=== PATIENT | female | born 1975 | race Caucasian/White ===

== ENCOUNTER → 2016-09-23 | Outpatient (CLI) | payer BC, OTHER ==
[~2016-09-23] MED LIST: AMOX875T PO; CALC500T72 PO; CLR10 PO; ESOM20CA PO; KETO10TA PO; MONT1TAB3 PO; OXYC-57 PO; OXYC1TAB3 PO; VITA400C3 PO; VITACAP26 PO; VTME100 PO
[2016-09-23 16:46] LABS: BASO % 0.3 %; BASO ABS # 0.03 K/uL (0-0.2); COMPLETE YES; EOS % 1.9 %; HEMATOCRIT 46.6 % (37-47); IG% 0.2 %; LYMPH % 23.7 %; LYMPH ABS # 2.84 K/uL (1.2-3.4); MEAN CELL VOLUME 95.1 fL (80-100); MEAN CORPUSCULAR HGB CONC 32.6 g/dl (32-36); MEAN PLATELET VOLUME 10.8 fL (7.4-10.4); MONO % 12.6 %; NEUT % 61.3 %; PLATELET COUNT 311 K/uL (130-400); WHITE BLOOD COUNT 11.97 K/uL (4.8-10.8)
[2016-09-23 17:12] LABS: BLOOD UREA NITROGEN 10 mg/dl (7-18); BUN/CREATININE RATIO 11.5 (10-20); CALCIUM 8.7 mg/dl (8.5-10.1); CARBON DIOXIDE 29 mmol/L (21-32); CHLORIDE 107 mmol/L (98-107); CREATININE 0.88 mg/dl (0.60-1.20); GLUCOSE 91 mg/dl (70-99); POTASSIUM 3.8 mmol/L (3.5-5.1); SODIUM 141 mmol/L (136-145)
== END | disposition home or self-care (01) ==
LOC: C.CPL 16:13
PROVIDERS: ATTEND Orthopaedic Surgery
DX: Z01.810 Encounter for preprocedural cardiovascular examination (principal); Z01.812 Encounter for preprocedural laboratory examination; M75.02 Adhesive capsulitis of left shoulder; R94.31 Abnormal electrocardiogram [ECG] [EKG]

== ENCOUNTER → 2016-12-24 | Day surgery (SDC) | payer BC, OTHER ==
[2016-12-17 16:34] VITALS: Ht 160 cm; Wt 86.4 kg
[~2016-12-24] VITALS: Ht 160 cm; Wt 86.4 kg
[~2016-12-24] MED LIST changes: -AMOX875T PO; +ATROPINE SULFATE 0.1 MG/ML 5ML SYR IV PRN; +BUPIVACAINE 0.5 % 5 MG/1 ML PF 10ML VIAL ONE; +EpHEDrine SULFATE INJ 50 MG/ML AMP IV PRN; +FENTANYL CITRATE INJ 50 MCG/1 ML 2 ML VIAL IV PRN; +FENTANYL CITRATE INJ 50 MCG/1 ML 2 ML VIAL ONE; +HYDROmorphone INJ 1 MG/ML SYR IV PRN; +LACTATED RINGER'S 1000ML 1,000 ML IV SCH; +LIDOCAINE HCL 2% 2 ML VIAL (20MG/ML) ONE; +METHYLPREDNISOLONE ACETATE 80 MG/ML VIAL ONE; +MIDAZOLAM HCL 1 MG/ML 2ML VIAL ONE; -MONT1TAB3 PO; +ONDANSETRON INJ 2 MG/ML 2 ML VIAL IV PRN; +ONDANSETRON INJ 2 MG/ML 2 ML VIAL ONE; -OXYC1TAB3 PO; +OXYCODONE/ACETAMINOPHEN 5-325 TAB PO PRN; +PROPOFOL IV EMULSION 10 MG/ML 20 ML VIAL IV ONE; +ROPIVACAINE 0.5% 5 MG/ML 30 ML VIAL ONE; +SODIUM CHLORIDE 0.9% 1000ML 1,000 ML IV SCH; -VITA400C3 PO; -VITACAP26 PO
--- NOTE | 2016-12-24 09:57 | History & Physical Bridge - [place] ---
H&P Re-Evaluation Bridge Note: I have examined the patient, reviewed the History & Physical and in the interval since the performance of the History & Physical I have noted the following changes of clinical significance: No changes noted
--- NOTE | 2016-12-24 13:13 | Discharge Instructions-SurgCtr ---
Discharge Instructions Date of Service Dec 24, 2016. Visit Reason for Visit: Left Shoulder Adhesive Capsulitis Discharge Discharge Diagnosis / Problem: SAME ABOVE Discharge Goals Goal(s): Decrease discomfort, Improve function Activity Recommendations Activity Limitations: as noted below Lifting Limitations: gradually increase as tolerated Exercise/Sports Limitations: gradually increase as tolerated Shower/Bathe: no limitations Anesthesia . Post Anesthesia Instructions: If you have had General Anesthesia or IV Sedation: * Do not drive today. * Resume driving when surgeon permits. * Do not make important decisions or sign legal documents today. * Call surgeon for: 1. Temperature elevations greater than 101 degrees F. 2. Uncontrollable pain. 3. Excessive bleeding. 4. Persistent nausea and vomiting. 5. Medication intolerance (nausea, vomiting or rash). * For nausea and vomiting use only clear liquids such as: tea, soda, bouillon until nausea subsides, then gradually increase diet as tolerated. * If you have any concerns or questions, call your surgeon's office. If physician is unavailable and it is an emergency, call 911 or go to the nearest emergency room. . Instructions / Follow-Up Instructions / Follow-Up MEDICATIONS: * Resume previous medications unless instructed otherwise by your surgeon. * Always take pain medication on a full stomach or with food to avoid upset stomach. * Do not drink alcohol or drive while taking narcotics. * Ibuprofen or Tylenol may be taken if narcotic not needed. SPECIAL CARE INSTRUCTIONS: __ None _X_ Keep extremity elevated and iced x 48 hours; apply ice 20-30 minutes 8-10 times/day. May remove at night. __ Sling __24 hrs/day __ Remove at night __ Shoulder Immobilizer __ 24 hrs/day __ Remove at night __ Dressing __ Maintain until seen in office, may shower with plastic over site __ Remove dressings in 24-48 hours and then may shower __ Cover incisions with band-aids after showering __ Do not remove steri-strips Call physician if chills or temperature rises above 102 degrees or pain unrelieved by prescribed pain medications at . . Diet Recommendations Home Diet: resume previous diet Procedures Procedures Performed: Left Shoulder Manipulation Under Anesthesia Pending Studies Studies pending at discharge: no Medical Emergencies . Who to Call and When: Medical Emergencies: If at any time you feel your situation is an emergency, please call 911 immediately. . Non-Emergent Contact Non-Emergency issues call your: Primary Care Provider . . "Provider Documentation" section prepared by Bartolo Bhardwaj. .
--- NOTE | 2016-12-24 13:36 | Anesthesia Progress Nt - [facility] ---
Anesthesia Post Op Note Date & Time Dec 24, 2016 at 13:36 Vital Signs Pain Intensity: 0 Vital Signs Past 12 Hours Date Time Temp Pulse Resp B/P (MAP) Pulse Ox O2 Delivery O2 Flow Rate FiO2 12/24/16 13:10 36.7 96 16 121/84 (96) 96 Room Air 12/24/16 12:53 0 12/24/16 12:51 132/78 12/24/16 12:48 93 12/24/16 12:48 92 10 100 12/24/16 12:46 125/83 12/24/16 12:43 101 21 100 12/24/16 12:43 101 12/24/16 12:41 129/91 12/24/16 12:38 93 12/24/16 12:38 94 0 99 12/24/16 12:36 127/92 12/24/16 12:33 90 12/24/16 12:33 89 0 100 12/24/16 12:31 131/90 12/24/16 12:28 90 6 132/82 100 12/24/16 12:28 93 12/24/16 10:58 37.4 77 16 135/92 (106) 98 Room Air Notes Mental Status: alert / awake / arousable, participated in evaluation Pt Amnestic to Procedure: Yes Nausea / Vomiting: adequately controlled Pain: adequately controlled Airway Patency, RR, SpO2: stable & adequate BP & HR: stable & adequate Hydration State: stable & adequate Anesthetic Complications: no major complications apparent
[2016-12-24 14:05] VITALS: BP 129/88; PULSE 98; TEMP 37.2; O2SAT 98
--- NOTE | 2016-12-24 14:32 | [facility] Post Operative Brief Note ---
Immediate Operative Summary Operative Date Dec 24, 2016. Pre-Operative Diagnosis Left Shoulder Adhesive Capsulitis Post-Operative Diagnosis Same Procedure(s) Performed Left Shoulder Manipulation Under Anesthesia Surgeon Dr. Quick Banking Consultant Surgeon(s) Chandra Bhardwaj PA-C Estimated Blood Loss None Findings as above Specimens None Complication(s) None Disposition Recovery Room / PACU
--- NOTE | 2016-12-24 16:09 | OPERATIVE REPORT ---
DATE OF OPERATION: 12/24/2016 PREOPERATIVE DIAGNOSIS: Adhesive capsulitis of the left shoulder. POSTOPERATIVE DIAGNOSIS: Same. PROCEDURE: Manipulation under anesthesia of the left shoulder. SURGEON: Dr. Bartolo Quick. ELECTRONICS SYSTEM MECHANIC: None. ANESTHESIA: General with a left interscalene nerve block. COMPLICATIONS: None. CONDITION: Stable to PACU. INDICATIONS FOR PROCEDURE: Arpita is a 41-year-old female who has been dealing with adhesive capsulitis of her left shoulder. I did an arthroscopic capsular release about 2 months ago. Unfortunately, she tightened back up and elected to proceed with the manipulation. DESCRIPTION OF PROCEDURE: On 12/24/2016, she arrived at [facility] for the above procedure. She was seen in the preoperative holding area and the operative extremity was identified and signed. She was given a left interscalene nerve block. She was taken back to the operating room, laid on the table in supine position and given a general anesthetic. Once she was properly sedated, a time-out was done and the patient and operative extremity was properly identified. On preoperative examination, she had about 40 degrees of abduction and 20 degrees of external rotation. A gentle manipulation was done under anesthesia and I was able to get full range of motion of her shoulder. She had full motion, abduction, external and internal rotation. The joint was then injected with 80 mg of Depo-Medrol and 5 mL of Marcaine. A Band-Aid was placed. She was then taken to the postanesthesia care unit in stable condition. She tolerated the procedure well. I attest to the content of the Intraoperative Record and any orders documented therein. Any exception s are noted below.
== END | disposition home or self-care (01) ==
LOC: X.SURG 10:10
PROVIDERS: ATTEND Orthopaedic Surgery
DX: M75.02 Adhesive capsulitis of left shoulder (principal)

== ENCOUNTER 2017-04-28 06:40 | Emergency (ER) | payer BC, OTHER ==
[~2017-04-28] VITALS: Ht 160 cm; Wt 91.0 kg
[~2017-04-28 06:40] MED LIST changes: -ATROPINE SULFATE 0.1 MG/ML 5ML SYR IV PRN; -BUPIVACAINE 0.5 % 5 MG/1 ML PF 10ML VIAL ONE; -EpHEDrine SULFATE INJ 50 MG/ML AMP IV PRN; -FENTANYL CITRATE INJ 50 MCG/1 ML 2 ML VIAL IV PRN; -FENTANYL CITRATE INJ 50 MCG/1 ML 2 ML VIAL ONE; -HYDROmorphone INJ 1 MG/ML SYR IV PRN; -LACTATED RINGER'S 1000ML 1,000 ML IV SCH; -LIDOCAINE HCL 2% 2 ML VIAL (20MG/ML) ONE; -METHYLPREDNISOLONE ACETATE 80 MG/ML VIAL ONE; -MIDAZOLAM HCL 1 MG/ML 2ML VIAL ONE; -ONDANSETRON INJ 2 MG/ML 2 ML VIAL IV PRN; -ONDANSETRON INJ 2 MG/ML 2 ML VIAL ONE; -OXYCODONE/ACETAMINOPHEN 5-325 TAB PO PRN; -PROPOFOL IV EMULSION 10 MG/ML 20 ML VIAL IV ONE; -ROPIVACAINE 0.5% 5 MG/ML 30 ML VIAL ONE; -SODIUM CHLORIDE 0.9% 1000ML 1,000 ML IV SCH
[2017-04-28 06:41] VITALS: TEMP 36.7; Ht 160 cm; Wt 91.0 kg
[2017-04-28] MEDS ORDERED: MoRPHine SULFATE 10 MG/ML CARP/VIAL IV STA (06:57)
[2017-04-28 07:23] LABS: BASO % 0.7 %; BASO ABS # 0.07 K/uL (0-0.2); COMPLETE YES; EOS % 1.7 %; HEMATOCRIT 45.5 % (37-47); IG% 0.2 %; LYMPH ABS # 3.03 K/uL (1.2-3.4); MEAN CELL VOLUME 95.2 fL (80-100); MEAN CORPUSCULAR HEMOGLOBIN 31.8 pg (25-34); MEAN CORPUSCULAR HGB CONC 33.4 g/dl (32-36); MEAN PLATELET VOLUME 11.2 fL (7.4-10.4); MONO % 12.7 %; NEUT % 55.7 %; PLATELET COUNT 297 K/uL (130-400); RED BLOOD COUNT 4.78 M/uL (4.2-5.4); WHITE BLOOD COUNT 10.45 K/uL (4.8-10.8)
[2017-04-28] MEDS ORDERED: MECLIZINE HCL 25 MG TAB PO STA (07:34)
--- NOTE | 2017-04-28 07:38 | DIAGNOSTIC IMAGING REPORT ---
HEAD WITHOUT CONTRAST (CT) CLINICAL HISTORY: 41 years-old Female presenting with dizzy, severe neck pain and weakness in the legs. TECHNIQUE: Multidetector CT imaging of the head was performed without the use of intravenous contrast. IV contrast: None. A dose lowering technique was used consistent with the principles of ALARA (as low as reasonably achievable). COMPARISON: None. CT DOSE (mGy.cm): The estimated cumulative dose is 1004.45 mGy.cm. FINDINGS: Pleat Patternmaker topogram: Unremarkable. Ventricles and sulci normal in size. Brain parenchyma normal in appearance with preserved denise-white differentiation. No mass effect or midline shift. No hemorrhage or acute territorial infarct. No extra-axial fluid collection. Paranasal sinuses and mastoid air cells clear. Calvarium intact. IMPRESSION: 1. No acute intracranial abnormality. Electronically signed by: Pop Shaw M.D. 04/28/2017 7:37 AM Dictated Date/Time: 04/28/2017 7:35 AM
[2017-04-28 07:42] LABS: CALCIUM 9.2 mg/dl (8.5-10.1); CREATININE 0.87 mg/dl (0.60-1.20); POTASSIUM 3.8 mmol/L (3.5-5.1)
--- NOTE | 2017-04-28 07:50 | EMERGENCY ROOM VISIT NOTE ---
History Report prepared by Nirali: Kirsten Beyer Under the Supervision of: Dr. Kyle Gomez D.O. First contact with patient: 06:47 Chief Complaint: NECK PAIN Stated Complaint: NECK PAIN,WEAKNESS IN LEGS,DIZZINESS History of Present Illness The patient is a 41 year old female who presents to the Emergency Room with complaints of persistent right sided neck pain that began this morning. She currently rates her discomfort as a 5/10 in severity. The patient states that her pain began this morning and notes worsened pain with movement of her head. She states that right after the pain began she noticed dizziness and weakness in her legs. The patient states that she feels off balance with ambulation. She states that her vision has also been blurry. The patient states that she has a history of three herniated discs in her neck and notes that she is scheduled to have surgery in two weeks. She denies any recent travel or fall. The patient denies headache, fevers, chest pain, shortness of breath, nausea, vomiting, diarrhea, pain with urination, and melena. Source of History: patient Onset: this morning Position: neck (right sided) Symptom Intensity: 5/10 Timing: other (persistent) Modifying Factors (Worsening): movement (of head) Associated Symptoms: + weakness (in legs) Note: Associated symptoms: dizziness, blurred vision, feeling off balance Review of Systems See HPI for pertinent positives & negatives. A total of 10 systems reviewed and were otherwise negative. Past Medical & Surgical Medical Problems: (1) Herniated disc, cervical Family History No pertinent family history stated. Social History Smoking Status: Never Smoker Marital Status: Housing Status: lives with significant other Occupation Status: employed Current/Historical Medications Scheduled Calcium Ascorbate (Vitamin C), 1 TAB PO QAM Esomeprazole Magnesium (Nexium), 20 MG PO QPM Loratadine (Claritin), 10 MG PO QPM Tocopheryl Acet,Dl-Alpha (Vitamin E), 1 CAP PO QAM Scheduled PRN Oxycodone Immediate Rel Tab (Roxicodone Ir), 5 MG PO Q6H PRN for Pain Allergies Coded Allergies: Ibuprofen (Verified Allergy, Unknown, UPSET STOMACH, 12/24/16) HIGH DOSES OF ADVIL ONLY, CAN TAKE SMALL DOSES Physical Exam Vital Signs Date Time Temp Pulse Resp B/P (MAP) Pulse Ox O2 Delivery O2 Flow Rate FiO2 04/28/17 10:00 87 18 98/67 98 04/28/17 09:00 86 18 128/87 96 Room Air 04/28/17 06:41 36.7 95 18 139/90 99 Room Air Physical Exam GENERAL: Sitting up in bed, in moderate distress, not moving neck, alert, well appearing, well nourished, non-toxic EYE EXAM: normal conjunctiva. PERRL and EOM's intact. OROPHARYNX: no exudate, no erythema, lips, buccal mucosa, and tongue normal and mucous membranes are moist NECK: Acute reproducible tenderness, just right of the OA joint tracking down the right paraspinal cervical region, does not enter the trapezius, supple, no nuchal rigidity, no adenopathy. LUNGS: Clear to auscultation. Normal chest wall mechanics HEART: no murmurs, S1 normal and S2 normal ABDOMEN: abdomen soft, non-tender, normo-active bowel sounds, no masses, no rebound or guarding. BACK: Back is symmetrical on inspection and there is no deformity, no midline tenderness, no CVA tenderness. SKIN: no rashes and no bruising UPPER EXTREMITIES: Flexion and extension in shoulder, elbow wrist, grasp and abduction of digits are 4/4 bilaterally, gross sensations intact. LOWER EXTREMITIES: Extension and flexion of hip, knee, ankle, and EHL 5/5 bilaterally, gross sensations are intact, patellar and Achilles reflexes are 2/ 4 bilaterally. No pitting edema. NEURO EXAM: Normal sensorium, cranial nerves II-XII intact, normal speech, no weakness of arms, no weakness of legs. No drift. Finger to nose intact. Gross sensation intact. Able to walk on heels and toes Medical Decision & Procedures ER Provider Diagnostic Interpretation: CT:Per my review, radiologist interpretation. HEAD WITHOUT CONTRAST (CT) CLINICAL HISTORY: 41 years-old Female presenting with dizzy, severe neck pain and weakness in the legs. TECHNIQUE: Multidetector CT imaging of the head was performed without the use of intravenous contrast. IV contrast: None. A dose lowering technique was used consistent with the principles of ALARA (as low as reasonably achievable). COMPARISON: None. CT DOSE (mGy.cm): The estimated cumulative dose is 1004.45 mGy.cm. FINDINGS: Aircraft Engine Specialist topogram: Unremarkable. Ventricles and sulci normal in size. Brain parenchyma normal in appearance with preserved denise-white differentiation. No mass effect or midline shift. No hemorrhage or acute territorial infarct. No extra-axial fluid collection. Paranasal sinuses and mastoid air cells clear. Calvarium intact. IMPRESSION: 1. No acute intracranial abnormality. Electronically signed by: Pop Shaw M.D. 04/28/2017 7:37 AM Dictated Date/Time: 04/28/2017 7:[address] DOSE: HISTORY: neck pain TECHNIQUE: Multiaxial CT images of the cervical spine were performed and reformatted in the sagittal and coronal plane without the use of contrast. A dose lowering technique was utilized adhering to the principles of ALARA. COMPARISON: None. FINDINGS: No fractures. No subluxation. Prevertebral soft tissues and the C1-C2 interval are intact. No pneumothorax. Moderate to space narrowing at C5-C6 with endplate osteophytes. Are she calcified left paracentral disc protrusion resulting in moderate central canal narrowing at this level. Therefore, this is considered to be chronic. 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 IMPRESSION: No fractures within the cervical spine. Electronically signed by: Dennis Foster M.D. 04/28/2017 8:59 AM Dictated Date/Time: 04/28/2017 8:10 AM Laboratory Results 04/28/17 07:05 Red Blood Count 4.78, Mean Corpuscular Volume 95.2, Mean Corpuscular Hemoglobin 31.8, Mean Corpuscular Hemoglobin Concent 33.4, Mean Platelet Volume 11.2, Neutrophils (%) (Auto) 55.7, Lymphocytes (%) (Auto) 29.0, Monocytes (%) (Auto) 12.7, Eosinophils (%) (Auto) 1.7, Basophils (%) (Auto) 0.7, Neutrophils # (Auto ) 5.82, Lymphocytes # (Auto) 3.03, Monocytes # (Auto) 1.33, Eosinophils # (Auto ) 0.18, Basophils # (Auto) 0.07 04/28/17 07:05 Test 04/28/17 07:05 White Blood Count 10.45 K/uL (4.8-10.8) Red Blood Count 4.78 M/uL (4.2-5.4) Hemoglobin 15.2 g/dL (12.0-16.0) Hematocrit 45.5 % (37-47) Mean Corpuscular Volume 95.2 fL (80-100) Mean Corpuscular Hemoglobin 31.8 pg (25-34) Mean Corpuscular Hemoglobin Concent 33.4 g/dl (32-36) Platelet Count 297 K/uL (130-400) Mean Platelet Volume 11.2 fL (7.4-10.4) Neutrophils (%) (Auto) 55.7 % Lymphocytes (%) (Auto) 29.0 % Monocytes (%) (Auto) 12.7 % Eosinophils (%) (Auto) 1.7 % Basophils (%) (Auto) 0.7 % Neutrophils # (Auto) 5.82 K/uL (1.4-6.5) Lymphocytes # (Auto) 3.03 K/uL (1.2-3.4) Monocytes # (Auto) 1.33 K/uL (0.11-0.59) Eosinophils # (Auto) 0.18 K/uL (0-0.5) Basophils # (Auto) 0.07 K/uL (0-0.2) RDW Standard Deviation 45.9 fL (36.4-46.3) RDW Coefficient of Variation 13.3 % (11.5-14.5) Immature Granulocyte % (Auto) 0.2 % Immature Granulocyte # (Auto) 0.02 K/uL (0.00-0.02) Anion Gap 6.0 mmol/L (3-11) Est Creatinine Clear Calc Drug Dose 89.3 ml/min Estimated GFR () 94.6 Estimated GFR (Non- 81.6 BUN/Creatinine Ratio 15.0 (10-20) Calcium Level 9.2 mg/dl (8.5-10.1) Laboratory results per my review. Medications Administered Medications (Trade) Dose Ordered Sig/Bogdan Route Start Time Stop Time Status Last Admin Dose Admin Morphine Sulfate (MoRPHine SULFATE INJ) 6 mg NOW STAT IV 04/28/17 06:57 04/28/17 06:59 DC 04/28/17 07:21 6 MG Meclizine HCl (Antivert Tab) 25 mg NOW STAT PO 04/28/17 07:34 04/28/17 07:35 DC 04/28/17 07:41 25 MG ED Course ED COURSE: Vital signs were reviewed and showed hypertensive The patients medical record was reviewed The above diagnostic studies were performed and reviewed. ED treatments and interventions as stated above. 0650: The patient was evaluated in room B5. A complete history and physical examination was performed. 0657: Ordered Morphine Sulfate 6 mg IV. 0732: Ordered Meclizine HCl 25 mg PO. 0753: I reevaluated the patient and her pain is resolving and her dizziness and better. 0940: Upon reevaluation, the patient is resting comfortably.I discussed my findings with the patient and she understands and agrees with the treatment plan. Based on the patients age, coexisting illnesses, exam and lab findings the decision to treat as an outpatient was made. The patient remained stable while under my care. The patient appeared well at the time of discharge. Medical Decision Differential diagnosis includes etiologies such as benign positional vertigo, dehydration, hypovolemia, anemia, tumor, infection, hypoglycemia, electrolyte abnormalities, cardiac sources, intracerebral event, toxicologic, neurologic, to lumbar radiculopathy, muscle strain, facture, cauda equina, mass, and disc herniation. Patient is a 41-year-old female who presents to ER for right sided neck pain. Pain is located at the base of her right LA tracking down her right cervical paraspinal musculature. Palpable on exam. Worse with movement IE twisting turning and bending of the neck. Completely neurologically intact. No headache. Complains of mild dizziness. Neuro exam is completely intact. Presentation is not consistent with CVA. No lateral neck pain to suggest vascular involvement of carotids and pain is consistent with musculoskeletal pain. Do not believe it's a vertebral issue. Patient ambulate without difficulty and did this on heels and toes. Patient does have 3 herniated disc. Prescription for surgery 2-3 weeks. Patient was given IV morphine. CBC and BMP were unremarkable. No fevers. No signs meningitis or encephalitis. CBC and BMP were unremarkable. CT of the cervical spine and head were negative. With her being completely neurologically intact she was discharged as the pain is paraspinal and muscular. It is completely reproducible. Vision was at her baseline. Pain was significant improved. Discharged with [facility]. PDMP reviewed. She was discharged follow-up with orthopedic spine. Discussed with Pt concerning signs and symptoms to watch out for. Pt was instructed to follow up with their PCP and discussed with the patient their option to return to the ED at anytime for persistent or worsening symptoms. The appropriate anticipatory guidance and out-patient management, including indications for return to the emergency department, were explained at length to the patient and understood. [place] Drug Monitoring Program Search Results: patient reviewed within database, no issues identified Medication Reconcilliation Current Medication List: was personally reviewed by me Blood Pressure Screening Patient's blood pressure: Elevated blood pressure Blood pressure disposition: Elevated BP felt to be situational, Did not require urgent referral Impression Primary Impression: Neck pain Scribe Attestation The scribe's documentation has been prepared under my direction and personally reviewed by me in its entirety. I confirm that the note above accurately reflects all work, treatment, procedures, and medical decision making performed by me. Departure Information Dispostion Home / Self-Care Prescriptions Oxycodone Immediate Rel Tab (ROXICODONE IR) 5 Mg Tab 5 MG PO Q6H Y for Pain, #10 TAB Prov: Kyle Gomez, DO 04/28/17 Referrals Derick Lester D.O. (PCP) Forms HOME CARE DOCUMENTATION FORM, IMPORTANT VISIT INFORMATION, WORK / SCHOOL INSTRUCTIONS Patient Instructions ED Neck Back Pain General, My [facility] Additional Instructions Please follow up with your primary care doctor with in the next 24 hours. Any worsening of your symptoms, please return to the ED immediately. This includes any fevers greater than 100.4, worsening pain, chest pain, shortness breath, persistent nausea, vomiting, unable to eat or drink, weakness in your arms or legs, or any other concerning signs or symptoms from your standpoint. You were given medications during this visit that will inhibit your ability to drive, operate machinery and work. Please do NOT drive, operate machinery or work for the next 12hrs. You were also given a prescription for a narcotic. While taking this medication you should also not drive, operate machinery and or work. Please follow up with orthopedic spine within the next week.
--- NOTE | 2017-04-28 09:00 | DIAGNOSTIC IMAGING REPORT ---
CERVICAL SPINE CT CT DOSE: HISTORY: neck pain TECHNIQUE: Multiaxial CT images of the cervical spine were performed and reformatted in the sagittal and coronal plane without the use of contrast. A dose lowering technique was utilized adhering to the principles of ALARA. COMPARISON: None. FINDINGS: No fractures. No subluxation. Prevertebral soft tissues and the C1-C2 interval are intact. No pneumothorax. Moderate to space narrowing at C5-C6 with endplate osteophytes. Are she calcified left paracentral disc protrusion resulting in moderate central canal narrowing at this level. Therefore, this is considered to be chronic. 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 IMPRESSION: No fractures within the cervical spine. Electronically signed by: Dennis Foster M.D. 04/28/2017 8:59 AM Dictated Date/Time: 04/28/2017 8:10 AM
[2017-04-28] MEDS ORDERED: OXYC1TAB3 PO (09:51)
[2017-04-28 10:00] VITALS: BP 98/67; PULSE 87; O2SAT 98
[2017-04-29] MEDS ORDERED: VITA400C3 PO (16:19)
[2017-04-29] MEDS ORDERED: MONT1TAB3 PO (16:19)
[2017-04-29] MEDS ORDERED: AMOX875T PO (16:19)
== END 2017-04-28 09:58 | disposition home or self-care (01) ==
LOC: C.EDB 06:41
DX: M54.2 Cervicalgia (principal); R42 Dizziness and giddiness

== ENCOUNTER 2017-05-13 05:34 | Observation (INO) | payer BC, OTHER ==
[2017-04-29 16:22] VITALS: BMI 35.0
--- NOTE | 2017-05-12 17:29 | HISTORY & PHYSICAL EXAMINATION ---
DATE OF ADMISSION: 05/13/2017 PREOPERATIVE HISTORY AND PHYSICAL CHIEF COMPLAINT: Neck and arm pain, trapezius pain, weakness, numbness and tingling. 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 She is miserable. She has exhausted conservative care. PAST MEDICAL HISTORY: Positive for acid reflux, neck and low back difficulties of sciatica; no kidney, liver disease; no carcinoma; does get some nausea and vomiting with anesthesia. No cardiac issues, diabetes or blood disorders. PAST SURGICAL HISTORY: Hysterectomy; elbow, knee surgery; 2 shoulder surgeries. ALLERGIES: Negative. MEDICATIONS: Listed on her inquiry. SOCIAL HISTORY: Nonsmoker, minimal alcohol, no drugs usage. REVIEW OF SYSTEMS: Denied any blurred vision, double vision, tinnitus, vertigo; occasional cervical spine migraine headaches. Denies any chest pain, palpitations. Denies shortness of breath. No nausea, vomiting. No urgency, frequency. OBJECTIVE: GENERAL: She is alert, oriented, pleasant young lady. She is 5 feet 3 inches, 198; she is 41. VITAL SIGNS: Blood pressure 140/80, pulse 80, respirations 16. MENTATION: Normal. No depression. HEENT: Normal. Specifically, pupils are reactive to accommodation. NECK: No adenopathy. CHEST: Normal S1, S2, no S3. LUNGS: Clear to auscultation. No rales, rhonchi or wheezing. ABDOMEN: Soft, nontender. MUSCULOSKELETAL: She has pain with flexion, extension of the cervical spine. Pain with side bending, positive Spurling maneuver, numbness and tingling to the extremities, weak communications department chairperson strength. IMAGES: Demonstrates kyphosis, osteophyte formation and stenosis of the spine. IMPRESSION: Two level cervical spine disease. DISPOSITION: Includes a 2-level ACDF, C4 through C6 cervical spine with iliac crest bone graft.
[~2017-05-13] VITALS: Ht 160 cm; Wt 90.9 kg
[2017-05-13] VITALS (14 sets, daily range): BP systolic 115–133; BP diastolic 77–91; PULSE 83–102; TEMP 36.5–37.2; O2SAT 92–100; Ht 160 cm; Wt 90.9 kg
[~2017-05-13 05:34] MED LIST changes: +AMOX875T PO; -KETO10TA PO; +MONT1TAB3 PO; -OXYC-57 PO; +VITA400C3 PO; -VTME100 PO
[2017-05-13] MEDS ORDERED: CEFAZOLIN 2000MG IV PUSH 10 ML IV SCH ×2 (06:00→16:00)
[2017-05-13] MEDS ORDERED: LACTATED RINGER'S 1000ML 1,000 ML IV SCH (06:00)
[2017-05-13] MEDS ORDERED: NSS 1000ML IV SCH (06:00)
[2017-05-13] MEDS ORDERED: PROPOFOL IV EMULSION 10 MG/ML 20 ML VIAL IV ONE (06:42)
[2017-05-13] MEDS ORDERED: DEXAMETHASONE SOD INJ 4 MG/ML VIAL ONE ×2 (06:42→08:14)
[2017-05-13] MEDS ORDERED: GLYCOPYRROLATE INJ 0.2 MG/ML VIAL ONE (06:42)
[2017-05-13] MEDS ORDERED: LIDOCAINE HCL 2% 2 ML VIAL (20MG/ML) ONE (06:42)
[2017-05-13] MEDS ORDERED: ROCURONIUM BROMIDE 10 MG/ML 5 ML VIAL IV ONE ×2 (06:42→08:36)
[2017-05-13] MEDS ORDERED: MIDAZOLAM HCL 1 MG/ML 2ML VIAL ONE (06:42)
[2017-05-13] MEDS ORDERED: NEOSTIGMINE METHYLSULFATE 1 MG/ML 10ML VIAL ONE (06:42)
[2017-05-13] MEDS ORDERED: ONDANSETRON INJ 2 MG/ML 2 ML VIAL ONE ×2 (06:42→09:17)
[2017-05-13] MEDS ORDERED: FENTANYL CITRATE INJ 50 MCG/1 ML 2 ML VIAL ONE ×2 (06:42→08:08)
[2017-05-13] MEDS ORDERED: ACETAMINOPHEN 1000 MG/100 ML IV IV ONE (06:46)
[2017-05-13] MEDS ORDERED: SCOPOLAMINE 1.5 MG TDSY TD ONE (07:05)
[2017-05-13] MEDS ORDERED: GELATIN SPONGE SZ 100 ONE ×2 (07:10→09:54)
[2017-05-13] MEDS ORDERED: THROMBIN FOR SOLN 20000 UNIT KIT ONE (07:10)
[2017-05-13] MEDS ORDERED: BUPIVACAINE/EPINEPHRINE 0.5% MPF 1:200,000 30 ML VIAL ONE (07:11)
[2017-05-13] MEDS ORDERED: BACITRACIN 50000 UNIT VIAL ONE (07:11)
[2017-05-13] MEDS ORDERED: ONDANSETRON INJ 2 MG/ML 2 ML VIAL IV PRN (08:00)
[2017-05-13] MEDS ORDERED: EpHEDrine SULFATE INJ 50 MG/ML AMP IV PRN (08:00)
[2017-05-13] MEDS ORDERED: FENTANYL CITRATE INJ 50 MCG/1 ML 2 ML VIAL IV PRN (08:00)
[2017-05-13] MEDS ORDERED: ATROPINE SULFATE 0.1 MG/ML 5ML SYR IV PRN (08:00)
[2017-05-13] MEDS ORDERED: HYDROmorphone INJ 2 MG/ML SYR/VIAL ONE (08:41)
--- NOTE | 2017-05-13 10:54 | [facility] Post Operative Brief Note ---
Immediate Operative Summary Operative Date May 13, 2017. Pre-Operative Diagnosis Two level cervical spine disease Post-Operative Diagnosis Two level cervical spine disease Procedure(s) Performed C4-C5, C5-C6 Anterior Cervical Discectomy and Fusion with Iliac Crest Bone Graft Surgeon Dr. Das Fall Internship Surgeon(s) Bartolo Bhardwaj PA-C Estimated Blood Loss 100ml Findings cord compression Specimens none per surgeon Complication(s) None Disposition Recovery Room / PACU
[2017-05-13] MEDS ORDERED: RACEPINEPHRINE 2.25% NEBU SOLN 0.5 ML VIAL INH PRN (11:00)
[2017-05-13] MEDS ORDERED: ACETAMINOPHEN IV 100 ML IV PRN (11:00)
[2017-05-13] MEDS ORDERED: NALOXONE HCL 0.4 MG/1 ML VIAL/CARP IV PRN (11:00)
[2017-05-13] MEDS ORDERED: DEXAMETHASONE INJ 8 MG in SYRINGE 0 ML IV PRN (11:00)
[2017-05-13] MEDS ORDERED: OXYCODONE/ACETAMINOPHEN 5-325 TAB PO PRN (11:00)
[2017-05-13] MEDS ORDERED: MAGNESIUM HYDROXIDE SUSP 30 ML UDC PO PRN (11:00)
--- NOTE | 2017-05-13 11:14 | OPERATIVE REPORT ---
DATE OF OPERATION: 05/13/2017 PREOPERATIVE DIAGNOSIS: Spinal cord compression C5-C6 and C4-C5 cervical spine. POSTOPERATIVE DIAGNOSIS: Same. PROCEDURE: Anterior cervical discectomy C4-C5 and C5-C6, decompression of spinal cord, partial corpectomy, anterior plating and anterior interbody fusion at C4-C5 and C5-C6, lastly was an anterior plate. Finally there was also a structural autograft taken from the left iliac crest separate fascial muscle approach. SURGEON: Dr. Das. FLY RAISER LOCKSTITCH: Bartolo Bhardwaj PA-C. OPERATION AND FINDINGS: DESCRIPTION OF PROCEDURE: The patient was taken to the operating room, a general intubated anesthetic provided to the patient, kept supine on the [facility] table. She was scrubbed, prepped and draped sterile. We made a transverse incision over roughly the 5th vertebrae, came down on the cervical spine, anterior aspect at the C4-5 interval. We were able to decompress the spinal cord. I took out the entire disc at this level. I took out osteophytes. I was up and behind the vertebrae out to the neural foramen. We went down to the C5-C6 region. This was more difficult level. Significant osteophyte formation. I believe we were able to get all extra bone removed, good foraminotomies performed. I could look down and see the spinal cord. There were no apparent issues or compression. We irrigated. I then went to the left iliac crest, made a skin incision, fascial incision, harvested 2 structural autografts at this level. The C5-C6 level was approximately 8 mm in height, the C4-C5 was approximately 7 mm in height. These were placed into the vacated discectomy sites. Anterior plate placed over top, locked and secured. Images looked appropriate. We irrigated and closed, locked down the plate, closed over a Gilberto drain with 4-0 Monocryl suture. Sterile dressing applied. Left iliac crest closed first with 1 Vicryl, 2-0 and 3-0 nylon. Sterile dressings were placed here as well. The patient extubated to PACU stable. No apparent complications. BLOOD LOSS: Less than 100 mL. COUNTS: Sponge and needle count correct at the close. IMPLANTS USED: Were by the [employer]. I attest to the content of the Intraoperative Record and any orders documented therein. Any exception s are noted below.
[2017-05-13] MEDS ORDERED: NURSING VERBAL MED ORDER ONE (11:45)
[2017-05-13] MEDS ORDERED: PROMETHAZINE HCL INJ 6.25 MG in SODIUM CHLORIDE 0.9% 50ML 50 ML IV ONE (12:00)
--- NOTE | 2017-05-13 12:19 | Anesthesiology Progress Note ---
Anesthesia Post Op Note Date & Time May 13, 2017 at 12:19 Vital Signs Pain Intensity: 1 Vital Signs Past 12 Hours Date Time Temp Pulse Resp B/P (MAP) Pulse Ox O2 Delivery O2 Flow Rate FiO2 05/13/17 12:01 78 17 123/86 100 05/13/17 12:01 78 17 05/13/17 11:56 81 19 126/85 99 05/13/17 11:56 83 19 05/13/17 11:51 84 16 05/13/17 11:51 83 16 134/93 99 05/13/17 11:46 99 26 134/84 99 05/13/17 11:46 101 26 05/13/17 11:41 76 19 05/13/17 11:41 74 19 125/84 100 05/13/17 11:36 80 19 05/13/17 11:36 81 19 122/81 100 05/13/17 11:31 81 14 05/13/17 11:31 81 14 126/76 100 05/13/17 11:26 79 19 121/80 99 05/13/17 11:26 79 19 05/13/17 11:21 79 25 05/13/17 11:21 78 25 127/72 100 05/13/17 11:16 78 18 05/13/17 11:16 78 18 118/74 100 05/13/17 11:11 79 17 128/79 99 05/13/17 11:11 79 17 05/13/17 11:06 95 20 131/92 97 05/13/17 11:06 94 20 05/13/17 11:01 36 94 16 131/92 97 Oxymask 7 05/13/17 06:02 36.6 95 20 130/91 97 Room Air Notes Mental Status: alert / awake / arousable, participated in evaluation Pt Amnestic to Procedure: Yes Nausea / Vomiting: adequately controlled Pain: adequately controlled Airway Patency, RR, SpO2: stable & adequate BP & HR: stable & adequate Hydration State: stable & adequate Anesthetic Complications: no major complications apparent PONV requiring zofran and phenergan and IVF in pacu. She did not receive additional narcotics. Nausea improving by the time of pacu discharge.
[2017-05-13] MEDS ORDERED: IV FLUIDS COMPLETED PRN (13:00)
[2017-05-13] MEDS: HYDROmorphone INJ 0.5 MG/0.5 ML SYR IV PRN ×2 (13:05→17:57)
[2017-05-13] MEDS ORDERED: HYDROmorphone INJ 1 MG/ML SYR IV PRN (13:15)
--- NOTE | 2017-05-13 14:12 | DIAGNOSTIC IMAGING REPORT ---
INTRAOPERATIVE RADIOGRAPHS CLINICAL HISTORY: C4-C6 spinal fusion. Fluoroscopy time: 7 seconds. FINDINGS: 2 spot fluoroscopic views of cervical spine are presented. There is evidence of anterior fusion from C4 -C6. The orthopedic hardware appears intact. IMPRESSION: Intraoperative images from C4 -C6 spinal fusion as above. Electronically signed by: Jake Gallo M.D. 05/13/2017 10:52 AM Dictated Date/Time: 05/13/2017 10:51 AM
[2017-05-13] MEDS: CEFAZOLIN IV 2,000 MG in SYRINGE 0 ML IV SCH (16:08)
[2017-05-13] MEDS: DEXAMETHASONE INJ 6 MG in SYRINGE 0 ML IV SCH ×2 (16:08→20:54)
[2017-05-13] MEDS: SODIUM CHLORIDE 0.9% 1000ML 1,000 ML IV SCH (16:38)
[2017-05-13] MEDS: ONDANSETRON INJ 2 MG/ML 2 ML VIAL IV PRN (17:56)
[2017-05-13] MEDS: ASCORBIC ACID 500 MG TAB PO SCH (20:56)
[2017-05-13] MEDS: LORATADINE 10 MG TAB PO SCH (20:56)
[2017-05-13] MEDS: PANTOprazole SOD 40 MG TAB PO SCH (20:57)
[2017-05-13] MEDS: MONTELUKAST SOD 10 MG TAB PO SCH (20:57)
[2017-05-13] MEDS: DOCUSATE SODIUM 100 MG CAP PO SCH (21:00)
[2017-05-14] VITALS (20 sets, daily range): BP systolic 111–131; BP diastolic 75–91; PULSE 92–112; TEMP 36.7–37.4; O2SAT 90–97
[2017-05-14] MEDS: CEFAZOLIN IV 2,000 MG in SYRINGE 0 ML IV SCH ×2 (00:17→09:03)
[2017-05-14] MEDS: SODIUM CHLORIDE 0.9% 1000ML 1,000 ML IV SCH (04:26)
[2017-05-14] MEDS: DEXAMETHASONE INJ 6 MG in SYRINGE 0 ML IV SCH (05:51)
--- NOTE | 2017-05-14 08:30 | ORTHOPEDICS PROGRESS NOTE ---
DATE: 05/14/2017 SUBJECTIVE: Moderate complaints of pain, no shortness of breath, chest pain. Alert, oriented, communicates well, no hoarseness. OBJECTIVE: Vital signs stable, afebrile. ASSESSMENT: Status post 2-level anterior cervical discectomy and fusion. DISPOSITION: We will get her up and ambulatory today. Discharge home tomorrow. I anticipate her discharge home with family. I do not think she will need to go to a rehab-type facility.
[2017-05-14] MEDS: DOCUSATE SODIUM 100 MG CAP PO SCH ×2 (09:03→21:42)
[2017-05-14] MEDS ORDERED: NURSING VERBAL MED ORDER ONE ×2 (13:15→14:30)
[2017-05-14] MEDS ORDERED: COUGH DROP (SUGAR FREE) LOZ 24 LOZ/1 BOX PO PRN (13:30)
--- NOTE | 2017-05-14 14:15 | Discharge Instructions ---
Discharge Instructions Date of Service May 14, 2017. Admission Reason for Admission: Degenerative Disc, Cord Compression Discharge Discharge Diagnosis / Problem: same Discharge Goals Goal(s): Improve function Activity Recommendations Activity Limitations: as noted below Lifting Limitations: until after follow-up appointment . Instructions / Follow-Up Instructions / Follow-Up MEDICATIONS: Please take your prescriptions as instructed at your pre-op appointment. SPECIAL CARE: The following information is intended to answer some of the common questions and concerns regarding your surgery. Each patient is an individual and receives individual counselling throughout the course of treatment, from diagnosis to surgery all the way through recovery. What follows is not an exhaustive list, but should be a useful guide to some of the common questions and concerns patients have regarding their surgeries. These are not provided to keep you from calling us; rather, they give you something accurate and concrete to reference as you recover from your procedure. If you need us, we are available to you. As always, if you are not sure about something, call us at [phone]. MEDICAL EMERGENCIES: For these conditions, call 911 or go to your local hospital-based Emergency Department - not [facility] or equivalent. * Paralysis * Severe chest pain or difficulty breathing * Swelling or redness of either leg Spine procedures can be rather complex and though complications are rare, they do occur. In such cases, effective advice regarding emergency situations cannot always be addressed over the telephone. You may be referred to the emergency department for more effective management of your problem. Activity Limitations: It is important to give your body time to heal, so please limit your activities : * In general, don't do anything that moves your spine too much. You should avoid contact sports, twisting or heavy lifting while you recover. * 5-10 pounds is all you should attempt to lift. * You should not plan on driving for approximately 3 weeks and you should avoid traveling more than 30-45 minutes at a time. Longer trips should be broken down with walking breaks spaced appropriately. * Physical therapy is not usually required. * Walking and good posture practices will help you recover and regain your function. * Avoid straining or sudden changes in position. * In general, the goal is to take it easy and recover. Don't cause any new problems. Just relax. Showers: * Do not take a bath, use a Jacuzzi or hot tub or otherwise submerge your incision. * It is usually safe to take a shower 4-5 days after your surgery. * Your incision does not require any special creams or ointments. * Simply clean it with soap and water, dry and re-dress with a clean bandage afterwards. Incision: * Keep incision clean, dry and protected until your first follow-up appointment. * Some amount of drainage and redness is normal. Any drainage should be fairly clear and not have a foul odor. * If you feel anything is wrong or you have excessive drainage, please call us. * Your stitches and loree will be removed 10-14 days after your surgery. At the time of your first post-op visit. * Neck surgeries are typically closed with a suture underneath the skin. The steri-strips over the incision should be maintained until we see you in the office. Bracing: * You may be provided with a back or neck brace to encourage good posture and prevent injury. It will remind you not to do too much as you heal and will alert others to the fact that you have had a surgery. * Back braces may be removed for showers and when you are resting at home. They must be worn when you are walking around for any period of time or for travel. * For neck surgery, you will likely be provided with two cervical collars. The soft collar (Claude or foam rubber) is worn most commonly throughout the day and while sleeping. The plastic collar (provided at the hospital) is for showering/bathing. * Except while eating, collars should remain in place. More specifically, bracing is provided for a purpose and should be worn. * Please obtain your brace or collars prior to your operation and bring them to the hospital with you on the day of surgery. * You should also bring your collars to your post-op appointment with Dr. Das. You should always take good care of your body and practice healthy habits, especially following surgery. You should: * Follow your doctor's treatment plan * Sit and stand properly with good posture (ears over shoulders, shoulders over hips) Don't slouch * Learn to lift correctly * Exercise regularly (low-impact aerobic exercise is especially good, but check with your doctor first) * Generally, be up and walking for 5-10 minutes at a time at least 3-4 times per day from the day you get home * Increasing walking to tolerance until you can walk for 20-30 minutes at a time * Attain and maintain a healthy body weight * Eat healthy foods ( a well-balanced, low-fat diet rich in fruits and vegetables) and get enough calcium * Avoid excessive use of alcohol When to call our office - If you notice any of the following: * Increased pain not relieve by pain medicine * Fevers greater then 100 degrees F, chills or flu symptoms * Increased redness around incision * Drainage from the incision that is not clear * Any foul smelling drainage * Swelling or fluid collection beneath the skin Miscellaneous: * In the hospital, you may be given a walker or cane for support while walking. These are temporary needs and are intended to prevent injuries due to falls. You may discontinue them when you feel strong and steady enough on your feet. * Sleep in a comfortable position. We find that many patients find a lounge chair or recliner with several pillows to be beneficial in the early post-operative period. * The support stockings should be used for 7-10 days and may be discontinued when you are back to walking more and conducting usual household activities. No problem is insignificant. We are here to help you and get you well. Contact us at [phone]. Definitions: Foraminotomy: If part of the disc or a bone spur (osteophyte) is pressing on a nerve as it leaves the vertebra (through an exit called the foramen), a foraminotomy may be done. Otomy means "to make an opening." A foraminotomy is making the opening of the foramen larger, so the nerve can exit without being compressed. Laminotomy: Similar to the foraminotomy, a laminotomy makes a larger opening, this time in your bony plate protecting your spinal canal and spinal cord (the lamina). The lamina may be pressing on your nerve, so the surgeon may make more room for the nerves using a laminotomy. Laminectomy: Sometimes, a laminotomy is not sufficient. The surgeon may need to remove all or part of the lamina. This procedure is called a laminectomy. This can often be done at many levels without any harmful effects. Current Hospital Diet Patient's current hospital diet: Clear Liquid Diet Discharge Diet Recommended Diet: Regular Diet Procedures Procedures Performed: C4-C5, C5-C6 Anterior Cervical Discectomy and Fusion with Iliac Crest Bone Graft Pending Studies Studies pending at discharge: no Medical Emergencies . Who to Call and When: Medical Emergencies: If at any time you feel your situation is an emergency, please call 911 immediately. . Non-Emergent Contact Non-Emergency issues call your: Surgeon Call Non-Emergent contact if: wound has increased pain . "Provider Documentation" section prepared by Curt Das. . VTE Core Measure Inpt VTE Proph given/why not?: Treatment not indicated
[2017-05-14] MEDS: LACTATED RINGER'S 1000ML 1,000 ML IV SCH (14:57)
[2017-05-14] MEDS: DEXAMETHASONE INJ 10 MG in SYRINGE 0 ML IV SCH ×2 (16:17→21:41)
[2017-05-14] MEDS: PANTOprazole SOD 40 MG TAB PO SCH (18:24)
[2017-05-14] MEDS: LORATADINE 10 MG TAB PO SCH (21:41)
[2017-05-14] MEDS: MONTELUKAST SOD 10 MG TAB PO SCH (21:42)
[2017-05-14] MEDS: ASCORBIC ACID 500 MG TAB PO SCH (21:42)
[2017-05-15] VITALS (15 sets, daily range): BP systolic 117–136; BP diastolic 74–89; PULSE 80–101; TEMP 36.2–36.9; O2SAT 91–98
[2017-05-15] MEDS: LACTATED RINGER'S 1000ML 1,000 ML IV SCH ×2 (03:08→16:37)
[2017-05-15] MEDS: DEXAMETHASONE INJ 10 MG in SYRINGE 0 ML IV SCH ×4 (03:08→20:54)
[2017-05-15] MEDS ORDERED: BISACODYL 10 MG SUPP PR PRN (06:00)
[2017-05-15] MEDS ORDERED: BISACODYL 5 MG TABEC PO PRN (06:00)
[2017-05-15] MEDS: ONDANSETRON INJ 2 MG/ML 2 ML VIAL IV PRN (07:40)
[2017-05-15] MEDS: DOCUSATE SODIUM 100 MG CAP PO SCH ×3 (08:43→21:00)
[2017-05-15] MEDS: PANTOprazole SOD 40 MG TAB PO SCH (10:13)
[2017-05-15] MEDS: MONTELUKAST SOD 10 MG TAB PO SCH (12:46)
[2017-05-15] MEDS: LORATADINE 10 MG TAB PO SCH (12:46)
[2017-05-15] MEDS ORDERED: NURSING VERBAL MED ORDER ONE (18:45)
--- NOTE | 2017-05-15 20:15 | DIAGNOSTIC IMAGING REPORT ---
CHEST ONE VIEW PORTABLE HISTORY: possible upper respiratory infection. COMPARISON: None. FINDINGS: A few bibasilar linear densities consistent with subsegmental atelectasis. The heart is borderline enlarged. This may be due to the low lung volumes. The upper lung zones are clear. No pleural effusions. No pneumothorax. Cervical spinal fusion hardware. The patient is in a cervical spine collar. IMPRESSION: Low lung volumes with bibasilar linear densities consistent with subsegmental atelectasis. Otherwise, no acute process within the chest. Electronically signed by: Dennis Foster M.D. 05/15/2017 8:14 PM Dictated Date/Time: 05/15/2017 8:10 PM
[2017-05-15] MEDS: RANITIDINE HCL 150 MG TAB PO SCH (20:26)
--- NOTE | 2017-05-15 20:49 | INTERNAL MEDICINE CONSULTATION ---
DATE OF CONSULTATION: 05/15/2017 CHIEF COMPLAINT: Upper respiratory tract infection. HISTORY OF PRESENT ILLNESS: This is a 41-year-old female with past medical history significant for sinus infections status post sinus surgery, status post cervical spine surgery, has some pain at surgical site. The patient says since her surgery she is not able to eat or drink and has constant cough with phlegm. She was started on Augmentin couple of days prior to surgery for her sinusitis, which she is not taking currently. Denies any fever or chills. Denies shortness of breath, no headaches, no blurred vision, no nausea, no vomiting. She is not able to eat because of the sore throat and cough with phlegm. No chest pain, no abdominal pain. Normal bowel and bladder movements. Currently, resting comfortably and hemodynamically stable. ALLERGIES: ASPIRIN AND IBUPROFEN. PAST MEDICAL HISTORY: As mentioned above. PAST SURGICAL HISTORY: Shoulder surgery, elbow surgery, bilateral carpal tunnel surgery, hysterectomy. MEDICATIONS: Vitamin C 500 mg, vitamin D 2000 mg p.o. daily, Nexium 40 mg p.o. q.p.m., Claritin 10 mg p.o. q.p.m., Singulair 10 mg q.p.m., vitamin E 800 mg p.o. q.p.m. FAMILY HISTORY: Denies any significant family history. SOCIAL HISTORY: Denies history of smoking. Alcohol occasional. No drug abuse. Lives with her . REVIEW OF SYMPTOMS: As per HPI. Rest of review of symptoms negative. PHYSICAL EXAMINATION: GENERAL: The patient is of moderate build, not in distress. VITAL SIGNS: Temperature 36.9, pulse 93, respiratory rate 18, blood pressure 132/84, oxygen 98% room air. HEENT: No pallor, no icterus. NECK: In cervical collar. CARDIOVASCULAR: S1, S2 heard, regular rate and rhythm, no murmur, no gallop. RESPIRATORY SYSTEM: Clear to auscultation bilaterally. No wheezing, no crackles. ABDOMEN: Soft, bowel sounds present. Nontender. No distention. CENTRAL NERVOUS SYSTEM: Cranial nerves II-XII grossly intact. Nonfocal. EXTREMITIES: No edema, no erythema. LABS: Currently unavailable. ASSESSMENT AND PLAN: A 41-year-old female status post cervical spine surgery complains of cough. 1. Cough with phlegm, possibly secondary to Sinusitis with post nasal drip. We will also follow the chest x-ray. We will place her on Augmentin, get sputum culture and follow the labs. 2. History of sinusitis infection. Continue antibiotic as above and continue her home medication of Singulair and loratadine . 3. Gastroesophageal reflux disease, PPI. 4. Deep venous thrombosis prophylaxis. 5. Disposition as per orthopedic. MTDD
[2017-05-15] MEDS: AMOXICILLIN/CLAVULANATE TAB 875 MG TAB PO SCH (20:52)
[2017-05-15] MEDS: ASCORBIC ACID 500 MG TAB PO SCH ×2 (20:54→21:00)
[2017-05-16] VITALS (10 sets, daily range): BP systolic 122–146; BP diastolic 79–87; PULSE 77–101; TEMP 36.5–36.7; O2SAT 92–97
[2017-05-16] MEDS: DEXAMETHASONE INJ 10 MG in SYRINGE 0 ML IV SCH ×4 (03:05→21:13)
[2017-05-16] MEDS: LACTATED RINGER'S 1000ML 1,000 ML IV SCH ×2 (05:45→18:37)
[2017-05-16] MEDS: RANITIDINE HCL 150 MG TAB PO SCH ×2 (06:30→18:37)
[2017-05-16 07:26] LABS: HEMATOCRIT 41.1 % (37-47); HEMOGLOBIN 13.9 g/dL (12.0-16.0); IG# 0.07 K/uL (0.00-0.02); LYMPH % 9.6 %; LYMPH ABS # 1.15 K/uL (1.2-3.4); MEAN CELL VOLUME 94.1 fL (80-100); MEAN CORPUSCULAR HEMOGLOBIN 31.8 pg (25-34); MEAN CORPUSCULAR HGB CONC 33.8 g/dl (32-36); MEAN PLATELET VOLUME 11.3 fL (7.4-10.4); MONO % 6.7 %; NEUT % 83.1 %; NEUT ABS # 9.94 K/uL (1.4-6.5); PLATELET COUNT 294 K/uL (130-400); RED CELL DISTRIBUTION WIDTH CV 13.1 % (11.5-14.5); RED CELL DISTRIBUTION WIDTH SD 45.1 fL (36.4-46.3); WHITE BLOOD COUNT 11.96 K/uL (4.8-10.8)
[2017-05-16 07:55] LABS: CALCIUM 8.8 mg/dl (8.5-10.1); CREATININE 0.75 mg/dl (0.60-1.20); POTASSIUM 3.7 mmol/L (3.5-5.1)
[2017-05-16] MEDS: AMOXICILLIN/CLAVULANATE TAB 875 MG TAB PO SCH ×2 (08:03→17:49)
[2017-05-16] MEDS: DOCUSATE SODIUM 100 MG CAP PO SCH ×2 (08:09→21:13)
[2017-05-16] MEDS: MONTELUKAST SOD 10 MG TAB PO SCH (08:10)
[2017-05-16] MEDS: LORATADINE 10 MG TAB PO SCH (08:10)
[2017-05-16] MEDS: PANTOprazole SOD 40 MG TAB PO SCH ×2 (08:10→08:11)
--- NOTE | 2017-05-16 12:17 | ORTHOPEDICS PROGRESS NOTE ---
DATE: 05/16/2017 She is improving. She still cannot tolerate any bite by mouth, she gets nauseated and has vomiting, is able to get a couple of pills down which is great and we are thanked for that. She is alert, oriented today. No chest pain. I also had the hospitalist check in on her. They were gracious enough to see her. She did have a diagnosis of pharyngitis, which I think is appropriate. Surgery can continue to that along with a preexisting viral infection. Her lungs remain clear. I do not think she has a true bronchitis nor pneumonia. She does have a history of pharyngeal infection. Her lungs are clear. Extremities are intact and she has good strength. X-rays were essentially negative for chest. Cultures negative. ASSESSMENT: Status post ____ rigorous cervical spine surgery, multiple level fusion. Also, history of pharyngitis. She also has some gastroesophageal reflux. DISPOSITION: At this point in time, we will continue with IV antibiotics. Continue with the medication for her GI system. She needs to stay today. It is unsafe to send her home. I discussed that with the family and hopefully home tomorrow.
[2017-05-16] MEDS: LORAZEPAM INJ 0.5 MG in SYRINGE 0.75 ML IV PRN (13:28)
--- NOTE | 2017-05-16 16:57 | Progress Note ---
Medicine Progress Note Date & Time of Visit: May 16, 2017 at 16:33. Subjective 41 yo F s/p C-spine surgery on 05/13 complicated by sinus infection. She reports that just this afternoon her congestion has begun to clear and she can breathe better. She denies fevers or chills and reports that she has a frontal headache in her sinus area related to not eating. DEnies fevers, chills, body aches. Cough improved. Objective Last 8 Hrs Date Time Temp Pulse Resp B/P (MAP) Pulse Ox O2 Delivery O2 Flow Rate FiO2 05/16/17 15:30 36.7 99 16 146/87 (106) 93 Room Air 05/16/17 15:16 101 16 96 Room Air 05/16/17 11:44 89 16 95 Room Air Physical Exam: GEN: WNWD, in no acute distress, alert and appropriate, sitting in bedside chair , hard collar in place. HEENT: NC/AT, pupils are equal and round bilaterally, normal sclerae, MMM, facial TTP in maxillary area. CARDIO: reg rate, S1/2 heard without m/g/r LUNGS: CTA bilaterally, no crackles, rales or wheezes, good diaphragmatic excursion ABD: soft, non-tender, non-distended, no rebound or guarding EXTREMITY: no LE swelling or edema, extremities are warm and well-perfused NEURO: CN 2-12 grossly intact, sensation intact throughout, no gross focal deficits. MUSC: 5/5 strength throughout, no gross focal deficits SKIN: warm and dry Laboratory Results: 05/16/17 06:46 Red Blood Count 4.37, Mean Corpuscular Volume 94.1, Mean Corpuscular Hemoglobin 31.8, Mean Corpuscular Hemoglobin Concent 33.8, Mean Platelet Volume 11.3, Neutrophils (%) (Auto) 83.1, Lymphocytes (%) (Auto) 9.6, Monocytes (%) (Auto) 6.7, Eosinophils (%) (Auto) 0.0, Basophils (%) (Auto) 0.0, Neutrophils # (Auto) 9.94, Lymphocytes # (Auto) 1.15, Monocytes # (Auto) 0.80, Eosinophils # (Auto) 0.00, Basophils # (Auto) 0.00 05/16/17 06:46 Test 05/16/17 06:46 White Blood Count 11.96 K/uL (4.8-10.8) Red Blood Count 4.37 M/uL (4.2-5.4) Hemoglobin 13.9 g/dL (12.0-16.0) Hematocrit 41.1 % (37-47) Mean Corpuscular Volume 94.1 fL (80-100) Mean Corpuscular Hemoglobin 31.8 pg (25-34) Mean Corpuscular Hemoglobin Concent 33.8 g/dl (32-36) Platelet Count 294 K/uL (130-400) Mean Platelet Volume 11.3 fL (7.4-10.4) Neutrophils (%) (Auto) 83.1 % Lymphocytes (%) (Auto) 9.6 % Monocytes (%) (Auto) 6.7 % Eosinophils (%) (Auto) 0.0 % Basophils (%) (Auto) 0.0 % Neutrophils # (Auto) 9.94 K/uL (1.4-6.5) Lymphocytes # (Auto) 1.15 K/uL (1.2-3.4) Monocytes # (Auto) 0.80 K/uL (0.11-0.59) Eosinophils # (Auto) 0.00 K/uL (0-0.5) Basophils # (Auto) 0.00 K/uL (0-0.2) RDW Standard Deviation 45.1 fL (36.4-46.3) RDW Coefficient of Variation 13.1 % (11.5-14.5) Immature Granulocyte % (Auto) 0.6 % Immature Granulocyte # (Auto) 0.07 K/uL (0.00-0.02) Anion Gap 5.0 mmol/L (3-11) Est Creatinine Clear Calc Drug Dose 102.4 ml/min Estimated GFR () 112.4 Estimated GFR (Non- 96.9 BUN/Creatinine Ratio 20.0 (10-20) Calcium Level 8.8 mg/dl (8.5-10.1) Date/Time Source Procedure Growth Status 05/15/17 19:50 Sputum Expectorated Sputum Gram Stain - Final Resulted 05/15/17 19:50 Sputum Expectorated Sputum Sputum Culture - Preliminary MODERATE NORMAL ARELI Present, Final ... Resulted Last 24 Hours Test 05/16/17 06:46 White Blood Count 11.96 K/uL Red Blood Count 4.37 M/uL Hemoglobin 13.9 g/dL Hematocrit 41.1 % Mean Corpuscular Volume 94.1 fL Mean Corpuscular Hemoglobin 31.8 pg Mean Corpuscular Hemoglobin Concent 33.8 g/dl Platelet Count 294 K/uL Mean Platelet Volume 11.3 fL Neutrophils (%) (Auto) 83.1 % Lymphocytes (%) (Auto) 9.6 % Monocytes (%) (Auto) 6.7 % Eosinophils (%) (Auto) 0.0 % Basophils (%) (Auto) 0.0 % Neutrophils # (Auto) 9.94 K/uL Lymphocytes # (Auto) 1.15 K/uL Monocytes # (Auto) 0.80 K/uL Eosinophils # (Auto) 0.00 K/uL Basophils # (Auto) 0.00 K/uL RDW Standard Deviation 45.1 fL RDW Coefficient of Variation 13.1 % Immature Granulocyte % (Auto) 0.6 % Immature Granulocyte # (Auto) 0.07 K/uL Sodium Level 138 mmol/L Potassium Level 3.7 mmol/L Chloride Level 106 mmol/L Carbon Dioxide Level 28 mmol/L Anion Gap 5.0 mmol/L Blood Urea Nitrogen 15 mg/dl Creatinine 0.75 mg/dl Est Creatinine Clear Calc Drug Dose 102.4 ml/min Estimated GFR () 112.4 Estimated GFR (Non- 96.9 BUN/Creatinine Ratio 20.0 Random Glucose 132 mg/dl Calcium Level 8.8 mg/dl Date/Time Source Procedure Growth Status 05/15/17 19:50 Sputum Expectorated Sputum Gram Stain - Final Resulted 05/15/17 19:50 Sputum Expectorated Sputum Sputum Culture - Preliminary MODERATE NORMAL ARELI Present, Final ... Resulted Assessment & Plan 41 yo F s/p C-spine surgery on 05/13 complicated by sinus infection. She reports that just this afternoon her congestion has begun to clear and she can breathe better. She denies fevers or chills and reports that she has a frontal headache in her sinus area related to not eating. 1. Acute bacterial sinusitis-appears to be improving on Augmentin. Cont this Claritin and singulair. Pt declines nasal saline or other nose sprays. Headache may be related to pressure from infection, not eating much or from tension related to hard collar in place. Currently on IVF-not eating well at this time, but feels like she can handle some soup later this evening. 2. post op state s/p c-spine surgery on 05/13. Healing well. Management per Dr. Das. 3. GERD-PPI and ranitidine DVT per [facility]\ FULL CODE Dispo-likely to home tomorrow, but up to Dr. Das. Would recommend continuing Augmentin for a total of 7 days minus what she has been given in the hospital already. Follow-up with PCP recommended within one week of discharge. DO Orin Echevarria Hospitalist Current Inpatient Medications: Current Inpatient Medications Medications (Trade) Dose Ordered Sig/Bogdan Route Start Time Stop Time Status Last Admin Dose Admin Racepinephrine (Raccemic Epinephrine 2.25% 0.5ML Neb) 0.5 ml ONE PRN INH 05/13/17 11:00 Acetaminophen 100 ml @ 400 mls/hr Q8H PRN IV 05/13/17 11:00 06/12/17 10:59 Hydromorphone HCl (Dilaudid Inj) 0.5 mg Q3H PRN IV 05/13/17 11:00 05/27/17 10:59 05/13/17 17:57 0.5 MG Magnesium Hydroxide (Milk Of Magnesia Susp) 30 ml DAILY PRN PO 05/13/17 11:00 06/12/17 10:59 Docusate Sodium (coLACE CAP) 100 mg BID PO 05/13/17 21:00 06/12/17 20:59 05/16/17 08:09 100 MG Ondansetron HCl (Zofran Inj) 4 mg Q6 PRN IV 05/13/17 11:00 06/12/17 10:59 05/15/17 07:40 4 MG Lorazepam 0.5 mg/ Syringe 1 ml @ 1 mls/min Q8H PRN IV 05/13/17 11:00 06/12/17 10:59 05/16/17 13:28 1 MLS/MIN Oxycodone/ Acetaminophen (Percocet 5-325mg Tab) 1 tablet for pain scale ... Q4H PRN PO 05/13/17 11:00 05/27/17 10:59 Bisacodyl (Dulcolax Tab) 5 mg DAILY PRN PO 05/15/17 06:00 06/14/17 05:59 Bisacodyl (Dulcolax Supp) 10 mg DAILY PRN OK 05/15/17 06:00 06/14/17 05:59 Dexamethasone Sodium Phosphate 8 mg/Syringe 2 ml @ 1 mls/min ONE PRN IV 05/13/17 11:00 Naloxone HCl (Narcan Inj) 0.1 mg Q5M PRN IV 05/13/17 11:00 06/12/17 10:59 Loratadine (Claritin Tab) 10 mg QPM PO 05/13/17 21:00 06/12/17 20:59 05/16/17 08:10 10 MG Montelukast Sodium (Singulair Tab) 10 mg QPM PO 05/13/17 21:00 06/12/17 20:59 05/16/17 08:10 10 MG Ascorbic Acid (Vitamin C Tab) 1,000 mg QPM PO 05/13/17 21:00 06/12/17 20:59 Pantoprazole Sodium (Protonix Tab) 40 mg QPM PO 05/13/17 21:00 06/12/17 20:59 05/16/17 08:11 40 MG Miscellaneous (Iv Fluids Completed) 1 ea PRN PRN N/A 05/13/17 13:00 05/13/18 12:59 Hydromorphone HCl (Dilaudid Inj) 1 mg Q3H PRN IV 05/13/17 13:15 05/27/17 13:14 Menthol (Nice Alexi) 1 alexi PRN PRN PO 05/14/17 13:30 06/13/17 13:29 05/14/17 13:33 1 ALEXI Lactated Ringer's 1,000 ml @ 75 mls/hr [id number] IV 05/14/17 14:45 06/13/17 14:44 05/16/17 05:45 75 MLS/HR Dexamethasone Sodium Phosphate 10 mg/Syringe 2.5 ml @ 1 mls/min Q6H IV 05/14/17 15:00 06/13/17 14:59 05/16/17 14:28 1 MLS/MIN Ranitidine HCl (zANTac TAB) 150 mg Q12H PO 05/15/17 19:00 06/14/17 18:59 05/16/17 06:30 150 MG Amoxicillin/ Clavulanate Potassium (Augmentin Tab) 875 mg BIDM PO 05/15/17 20:00 05/25/17 19:59 05/16/17 08:03 875 MG
[2017-05-16] MEDS: ASCORBIC ACID 500 MG TAB PO SCH (21:13)
[2017-05-17] VITALS (8 sets, daily range): BP systolic 125–131; BP diastolic 81–85; PULSE 70–92; TEMP 37; O2SAT 94–98
[2017-05-17] MEDS: DEXAMETHASONE INJ 10 MG in SYRINGE 0 ML IV SCH ×2 (03:26→08:29)
[2017-05-17] MEDS: RANITIDINE HCL 150 MG TAB PO SCH (06:36)
[2017-05-17] MEDS: AMOXICILLIN/CLAVULANATE TAB 875 MG TAB PO SCH (08:27)
[2017-05-17] MEDS: DOCUSATE SODIUM 100 MG CAP PO SCH (08:28)
[2017-05-17] MEDS: LORATADINE 10 MG TAB PO SCH (08:28)
[2017-05-17] MEDS: MONTELUKAST SOD 10 MG TAB PO SCH (08:28)
[2017-05-17] MEDS: PANTOprazole SOD 40 MG TAB PO SCH (08:28)
[2017-05-17] MEDS ORDERED: NURSING VERBAL MED ORDER ONE (08:30)
[2017-05-17] MEDS: LORAZEPAM INJ 0.5 MG in SYRINGE 0.75 ML IV PRN (09:47)
[2017-05-17] MEDS ORDERED: OXYC-57 PO (10:32)
[2017-05-17] MEDS ORDERED: AMOX875T PO (13:02)
--- NOTE | 2017-05-21 14:23 | DISCHARGE SUMMARY ---
SUBJECTIVE: She is improved, stable. Alert, oriented. Minimal complaints. No confusion. No chest pain, shortness of breath. OBJECTIVE: Vital signs stable. Laboratory work stable as well. ASSESSMENT: Status post spinal surgery, doing well in the short run. DISPOSITION: Includes instructions, precautions, education. Follow-up examination in the office in 10 days. Instructions were given at the hospital and from our office. Medications also offered.
--- NOTE | 2017-05-26 09:05 | DISCHARGE SUMMARY ---
Improved stable. She is status post spinal surgery, doing well in the short run. No chest pain or shortness of breath. Alert, oriented. Wounds clean, minimal drainage. ASSESSMENT: Status post spinal reconstructive surgery. DISPOSITION: She will be discharged home in improved stable condition. Collar for support. Medication for support. Followup examination will be done in the office in approximately 2 weeks.
== END 2017-05-17 14:37 | disposition home or self-care (01) ==
LOC: C.ACU 05:34 → C.3E 07:00 → ENRESERV 11:58
PROVIDERS: ADMIT Orthopaedic Surgery Orthopaedic Surgery of the Spine; ATTEND Orthopaedic Surgery Orthopaedic Surgery of the Spine
DX: M48.02 Spinal stenosis, cervical region (principal); M40.202 Unspecified kyphosis, cervical region; K21.9 Gastro-esophageal reflux disease without esophagitis; E11.9 Type 2 diabetes mellitus without complications; Z90.710 Acquired absence of both cervix and uterus; E66.9 Obesity, unspecified

== ENCOUNTER → 2018-01-06 | Day surgery (SDC) | payer BC, OTHER ==
[2018-01-03 11:39] VITALS: Ht 160 cm; Wt 86.4 kg
[~2018-01-06] VITALS: Ht 160 cm; Wt 86.4 kg
[~2018-01-06] MED LIST changes: +ATROPINE SULFATE 0.1 MG/ML 5ML SYR IV PRN; +BUPIVACAINE 0.25% 30 ML VIAL ONE; +CEFAZOLIN 2000MG IV PUSH 15 ML IV SCH; +DEXAMETHASONE SOD INJ 4 MG/ML VIAL ONE; +EpHEDrine SULFATE INJ 50 MG/ML AMP IV PRN; +EpINEphrine INJ 1MG/ML AMP 1 MG/ML AMP ONE; +FENTANYL CITRATE INJ 50 MCG/1 ML 2 ML VIAL IV PRN; +FENTANYL CITRATE INJ 50 MCG/1 ML 2 ML VIAL ONE; +KETO10TA PO; +LIDOCAINE HCL 2% 2 ML VIAL (20MG/ML) ONE; +METOCLOPRAMIDE HCL INJ 5 MG/ML 2 ML VIAL ONE; +MIDAZOLAM HCL 1 MG/ML 2ML VIAL ONE; +NURSING VERBAL MED ORDER ONE; +ONDANSETRON INJ 2 MG/ML 2 ML VIAL IV PRN; +ONDANSETRON INJ 2 MG/ML 2 ML VIAL ONE; +OXYC-57 PO; +OXYCODONE/ACETAMINOPHEN 5-325 TAB PO PRN; +PROMETHAZINE HCL INJ 25 MG/ML 1 ML VIAL ONE; +PROPOFOL IV EMULSION 10 MG/ML 20 ML VIAL ONE; +ROPIVACAINE 0.5% 5 MG/ML 30 ML VIAL ONE; +SCOPOLAMINE 1.5 MG TDSY TD ONE; +SODIUM CHLORIDE 0.9% 1000ML 1,000 ML IV SCH
[2018-01-06] MEDS: LACTATED RINGER'S 1000ML 1,000 ML IV SCH ×2 (08:51→11:55)
--- NOTE | 2018-01-06 11:29 | [facility] Post Operative Brief Note ---
Immediate Operative Summary Operative Date Jan 06, 2018. Pre-Operative Diagnosis Left Shoulder Adhesive Capsulitis Post-Operative Diagnosis Same Procedure(s) Performed Left Shoulder Arthroscopy With Subacromial Decompression & Capsular Release Surgeon Dr. Quick [employer] Manager Surgeon(s) Cathy Jones PA-C Estimated Blood Loss 5cc Findings Consistent with Post-Op Diagnosis Specimens None Anesthesia Type General [facility]
--- NOTE | 2018-01-06 11:36 | Discharge Instructions-SurgCtr ---
Discharge Instructions Date of Service Jan 06, 2018. Visit Reason for Visit: Left Shoulder Rotator Cuff Syndrome, Adhesive Caps Discharge Discharge Diagnosis / Problem: SAME ABOVE Discharge Goals Goal(s): Decrease discomfort, Improve function Activity Recommendations Activity Limitations: as noted below Lifting Limitations: gradually increase as tolerated Exercise/Sports Limitations: gradually increase as tolerated Shower/Bathe: tomorrow Anesthesia . Post Anesthesia Instructions: If you have had General Anesthesia or IV Sedation: * Do not drive today. * Resume driving when surgeon permits. * Do not make important decisions or sign legal documents today. * Call surgeon for: 1. Temperature elevations greater than 101 degrees F. 2. Uncontrollable pain. 3. Excessive bleeding. 4. Persistent nausea and vomiting. 5. Medication intolerance (nausea, vomiting or rash). * For nausea and vomiting use only clear liquids such as: tea, soda, bouillon until nausea subsides, then gradually increase diet as tolerated. * If you have any concerns or questions, call your surgeon's office. If physician is unavailable and it is an emergency, call 911 or go to the nearest emergency room. . Instructions / Follow-Up Instructions / Follow-Up MEDICATIONS: * Resume previous medications unless instructed otherwise by your surgeon. * Always take pain medication on a full stomach or with food to avoid upset stomach. * Do not drink alcohol or drive while taking narcotics. * Ibuprofen or Tylenol may be taken if narcotic not needed. SPECIAL CARE INSTRUCTIONS: __ None _X_ Keep extremity elevated and iced x 48 hours; apply ice 20-30 minutes 8-10 times/day. May remove at night. _X_ Sling (REMOVE AFTER 24 HOURS) __24 hrs/day __ Remove at night __ Shoulder Immobilizer __ 24 hrs/day __ Remove at night _X_ Dressing __ Maintain until seen in office, may shower with plastic over site _X_ Remove dressings in 24-48 hours and then may shower _X_ Cover incisions with band-aids after showering __ Do not remove steri-strips Call physician if chills or temperature rises above 102 degrees or pain unrelieved by prescribed pain medications at . . Diet Recommendations Home Diet: no limitations Fluid Restriction: None Procedures Procedures Performed: Left Shoulder Arthroscopy, Acromioplasty, Biceps Tenotomy, Limited Debridement Pending Studies Studies pending at discharge: no Work Instructions Return To Work: after follow-up Lifting Limitations: none Medical Emergencies . Who to Call and When: Medical Emergencies: If at any time you feel your situation is an emergency, please call 911 immediately. . Non-Emergent Contact Non-Emergency issues call your: Surgeon Call Non-Emergent contact if: your pain is not controlled, your pain is worsening, wound has increased drainage . . "Provider Documentation" section prepared by Laron Jones. .
--- NOTE | 2018-01-06 12:13 | OPERATIVE REPORT ---
DATE OF OPERATION: 01/06/2018 PREOPERATIVE DIAGNOSIS: Persistent adhesive capsulitis of the left shoulder with external impingement. POSTOPERATIVE DIAGNOSIS: External impingement, biceps tendinopathy, and subacromial bursitis of the left shoulder with minimal residual adhesive capsulitis. PROCEDURE: A diagnostic arthroscopy with extensive debridement, acromioplasty, and biceps tenotomy. SURGEON: Dr. Bartolo Quick. REEL ASSEMBLER: Laron Jones PA-C, whose assistance was necessary for positioning the arm and help with arthroscopic instrumentation. ANESTHESIA: General with a left interscalene nerve block. COMPLICATIONS: None. CONDITION: Stable to PACU. INDICATIONS: Arpita is a pleasant 42-year-old female who I did a capsular release on in 09/2016. Two months later, her shoulder flares up again. I did a manipulation under anesthesia. Unfortunately, she has still been having some shoulder pain. When I examined her in the office, her shoulder still felt tight. It was unsure if she was holding back because of pain or because of persistent adhesive capsulitis. MRI was essentially negative. After failing another year of conservative treatment, she elected to undergo arthroscopy. On 01/06/2018, she arrived at [facility] for the above procedure. She was seen in the preoperative holding area and the operative extremity was identified and signed. She was given a preoperative antibiotic and a left interscalene nerve block. She was taken back to the operating room, laid on the table in supine position and put under general anesthesia. She was then put into the beach chair position. The left shoulder was prepped and draped in sterile fashion. Time-out was done. The patient's operative extremity was properly identified. On preoperative physical examination, she had near full range of motion of her shoulder. I was not able to do any significant manipulation under anesthesia. The scope was placed in the posterior portal. Diagnostic arthroscopy showed no cartilage damage to the humeral head or the glenoid. There was a little bit of fraying and residual scarring of the rotator interval. The biceps tendon was red and inflamed, but intact. The supraspinatus, infraspinatus, teres minor, and subscapularis were checked and intact. An anterior portal was made. A shaver was used to start an extensive debridement of some of the intraarticular structures. The rotator interval was completely opened up once again and debridement was done in the middle and part of the anterior inferior glenohumeral ligaments. There was not a complete capsular release, so I was just debriding back any residual tissue and a little bit of scarring. The biceps tendon was arthroscopically tenotomized. The scope was then put into the subacromial space. A lateral portal was made. A shaver was used to do a complete subacromial and subdeltoid bursectomy. An ablator was used to tease the coracoacromial ligament off the undersurface of the acromion and a 5-0 rayray was used to create an acromioplasty of a Bigliani type 3 acromion. A shaver was used to remove any excess debris. The bursal side of the rotator cuff was examined extensively without evidence of tear. Significant time was spent debriding both the subacromial and subdeltoid spaces. I was happy with the overall release. I saw no further pathology in her shoulder. Arthroscopic instruments were removed from the shoulder. Portal sites were closed with 3-0 nylon. She was then placed in a soft dressing and a regular arm sling. She was then extubated, transferred [facility] a [facility], and taken to postanesthesia care unit in stable condition. She tolerated the procedure well. I attest to the content of the Intraoperative Record and any orders documented therein. Any exception s are noted below.
--- NOTE | 2018-01-06 12:15 | Anesthesia Progress Nt - [facility] ---
Anesthesia Post Op Note Date & Time Jan 06, 2018 at 12:14 Vital Signs Pain Intensity: 0 Vital Signs Past 12 Hours Date Time Temp Pulse Resp B/P (MAP) Pulse Ox O2 Delivery O2 Flow Rate FiO2 01/06/18 11:35 36.2 87 20 136/95 96 Mask 6 01/06/18 10:45 0 01/06/18 10:41 130/81 01/06/18 10:40 93 21 97 01/06/18 10:40 94 01/06/18 10:36 121/80 01/06/18 10:35 90 01/06/18 10:35 91 19 97 01/06/18 10:31 119/81 01/06/18 10:30 87 01/06/18 10:30 85 97 01/06/18 10:25 86 01/06/18 10:25 86 20 124/86 98 01/06/18 10:20 90 01/06/18 10:20 90 21 117/87 97 01/06/18 10:15 88 01/06/18 10:15 90 19 125/82 98 01/06/18 10:11 115/77 01/06/18 10:10 85 6 98 01/06/18 10:10 85 01/06/18 10:06 124/80 01/06/18 10:05 85 01/06/18 10:05 85 11 98 01/06/18 10:00 84 01/06/18 10:00 84 15 127/76 98 01/06/18 09:56 126/87 01/06/18 09:55 101 0 120/84 97 01/06/18 09:55 99 01/06/18 09:50 89 0 01/06/18 09:45 90 0 01/06/18 08:09 36.6 87 18 139/97 (111) 100 Room Air Notes Mental Status: alert / awake / arousable, participated in evaluation Pt Amnestic to Procedure: Yes Nausea / Vomiting: adequately controlled Pain: adequately controlled Airway Patency, RR, SpO2: stable & adequate BP & HR: stable & adequate Hydration State: stable & adequate Anesthetic Complications: no major complications apparent
[2018-01-06 13:46] VITALS: BP 123/80; PULSE 109; O2SAT 96
== END | disposition home or self-care (01) ==
LOC: X.SURG 07:26
PROVIDERS: ATTEND Orthopaedic Surgery
DX: M75.02 Adhesive capsulitis of left shoulder (principal); M25.812 Other specified joint disorders, left shoulder; E66.9 Obesity, unspecified